=== PATIENT | female | born 1980 | race Caucasian/White ===

== ENCOUNTER → 2018-08-15 | Outpatient (CLI) | payer OTHER | END | disposition home or self-care (01) | LOC: SHCH 14:24 | PROVIDERS: ATTEND Internal Medicine Cardiovascular Disease | DX: I87.2 Venous insufficiency (chronic) (peripheral) (principal); I87.319 Chronic venous hypertension (idiopathic) with ulcer of unspecified lower extremity | CPT/HCPCS: 93970 ==

== ENCOUNTER → 2019-10-10 | Outpatient (CLI) | payer OTHER | END | disposition home or self-care (01) | LOC: SLP 19:56 | PROVIDERS: ATTEND Family Medicine | DX: R06.83 Snoring (principal); R40.0 Somnolence; G47.8 Other sleep disorders | CPT/HCPCS: 95810 ==

== ENCOUNTER → 2019-10-29 | Outpatient (CLI) | payer OTHER ==
[2019-10-29 22:19] VITALS: PULSE 91; RESP 17; O2SAT 99
[2019-10-29 22:34] VITALS: PULSE 91; RESP 20; O2SAT 100
[2019-10-29 22:52] VITALS: PULSE 97; RESP 21; O2SAT 97
[2019-10-29 23:21] VITALS: PULSE 106; RESP 16; O2SAT 98
[2019-10-29 23:51] VITALS: PULSE 103; RESP 20; O2SAT 96
[2019-10-30] VITALS (15 sets, daily range): PULSE 81–98; RESP 11–20; O2SAT 88–97
== END | disposition home or self-care (01) ==
LOC: SLP 20:15
PROVIDERS: ATTEND Family Medicine
DX: G47.33 Obstructive sleep apnea (adult) (pediatric) (principal)